=== PATIENT | male | born 1990 | race Caucasian/White ===

== ENCOUNTER 2017-02-07 00:47 | Emergency (ER) | payer SELFPAY ==
[~2017-02-07] VITALS: Ht 175.3 cm; Wt 72.6 kg
[2017-02-07] MEDS ORDERED: KETOROLAC 60 MG/2 ML VIAL IM ONE (00:55)
[2017-02-07] MEDS ORDERED: LIDOCAINE 1% 500 MG/50 ML VIAL INJ ONE (00:55)
--- NOTE | 2017-02-07 01:00 | NUR ---
PATIENT BIB BLS TO ER BED 5.
--- NOTE | 2017-02-07 01:01 | NUR ---
Patient being evaluated by physician at bedside.
[2017-02-07 01:09] VITALS: BP 123/59
[2017-02-07] MEDS ORDERED: BACITRACIN OINT 500 UNITS/GM PKT TP ONE (03:42)
[2017-02-07 04:30] VITALS: BP 109/61
--- NOTE | 2017-02-07 04:30 | NUR ---
Patient discharged with v/s stable. Written and verbal after care instructions given and explained. Patient alert, oriented and verbalized understanding of instructions. Ambulatory with steady gait. All questions addressed prior to discharge. ID band removed. Patient advised to follow up with PMD. Rx of BACTRIM AND MOTRIN given. Patient educated on indication of medication including possible reaction and side effects. Opportunity to ask questions provided and answered.
== END 2017-02-07 04:30 | disposition home or self-care (01) ==
LOC: MED 00:47
DX: S01.412A Laceration without foreign body of left cheek and temporomandibular area, initial encounter (principal); S06.0X9A Concussion with loss of consciousness of unspecified duration, initial encounter; R03.0 Elevated blood-pressure reading, without diagnosis of hypertension; V19.9XXA Pedal cyclist (driver) (passenger) injured in unspecified traffic accident, initial encounter; Y93.89 Activity, other specified; Y92.89 Other specified places as the place of occurrence of the external cause; Y99.8 Other external cause status
CPT/HCPCS: 12013; 70450; 90471; 90715; 96372; 99284; J1885; J2001